=== PATIENT | male | born 1995 | race African-American/Black ===

== ENCOUNTER 2024-10-13 10:00 | Outpatient (RCR) | payer MEDICAID, OTHER, SELFPAY ==
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
--- NOTE | 2024-08-01 09:42 | OPREHPOC ---
Outpatient Therapy Plan of Care This is a Multidisciplinary Plan of Care that may contain components documented by all disciplines (PT, OT, and ST.) OT Problem 1 OT Problem #1 Knowledge Deficit OT Goal 1 Goal / Goal Update 1. Patient to be independent with instructed materials. Target Visit 8 OT Problem 2 OT Problem #2 Impaired Strength OT Goal 1 Goal / Goal Update Patient to improve functional upper extremity strength for ADLs as demonstrated by: 1. Patient being able to complete ROM of bilateral shoulders through normal ROM (160 deg. flexion and abduction). 2. Patient to improve bilateral elbow, forearm, and wrist strength to 4+/5. 3. Patient to increase (R) library manager strength from 45 lbs. to 60 lbs. 4. Patient to increase (L) library manager strength from 44 lbs. to 55 lbs. Target Visit 8
--- NOTE | 2024-08-01 10:47 | OPREHPOC ---
Outpatient Therapy Plan of Care This is a Multidisciplinary Plan of Care that may contain components documented by all disciplines (PT, OT, and ST.) PT Problem 1 PT Problem #1 Knowledge Deficit PT Goal 1 Goal / Goal Update [place] with home stretching program Target Visit 4 PT Problem 2 PT Problem #2 Impaired Gait PT Goal 1 Goal / Goal Update Patient will ambulate with improve terminal stance bilaterally and upright trunk control for 500'+ without cueing Target Visit 10 PT Goal 2 Goal / Goal Update Improve 2 minute walk test to 300' for improve gait speed and endurance appropriate for age Target Visit 10 PT Problem 3 PT Problem #3 Impaired Range of Motion PT Goal 1 Goal / Goal Update 1. Achieve 40 degrees barber hip abduction for reduced capsular restriction 2. Achieve 10+ degrees of barber hip extension for improved terminal stance and reduced hip flexion contracture 3. Demonstrate 10+ degrees barber ankle dorsiflexion to improve terminal stance of gait Target Visit 10 PT Goal 2 Goal / Goal Update Achieve 0-120 degrees barber knee ROM to prevent knee contracture Target Visit 10 PT Problem 4 PT Problem #4 Impaired Strength PT Goal 1 Goal / Goal Update Improve barber hip abduction to 4+/5 to improve lateral stability with gait and ADLs Target Visit 10 OT Problem 1 OT Problem #1 Knowledge Deficit OT Goal 1 Goal / Goal Update 1. Patient to be independent with instructed materials. Target Visit 8 OT Problem 2 OT Problem #2 Impaired Strength OT Goal 1 Goal / Goal Update Patient to improve functional upper extremity strength for ADLs as demonstrated by: 1. Patient being able to complete ROM of bilateral shoulders through normal ROM (160 deg. flexion and abduction). 2. Patient to improve bilateral elbow, forearm, and wrist strength to 4+/5. 3. Patient to increase (R) pet sitter strength from 45 lbs. to 60 lbs. 4. Patient to increase (L) pet sitter strength from 44 lbs. to 55 lbs. Target Visit 8
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
--- NOTE | 2024-08-26 10:47 | OPREHPOC ---
Outpatient Therapy Plan of Care This is a Multidisciplinary Plan of Care that may contain components documented by all disciplines (PT, OT, and ST.) PT Problem 1 PT Problem #1 Knowledge Deficit PT Goal 1 Goal / Goal Update [place] with home stretching program Target Visit 4 PT Problem 2 PT Problem #2 Impaired Gait PT Goal 1 Goal / Goal Update Patient will ambulate with improve terminal stance bilaterally and upright trunk control for 500'+ without cueing Target Visit 10 PT Goal 2 Goal / Goal Update Improve 2 minute walk test to 300' for improve gait speed and endurance appropriate for age Target Visit 10 PT Problem 3 PT Problem #3 Impaired Range of Motion PT Goal 1 Goal / Goal Update 1. Achieve 40 degrees barber hip abduction for reduced capsular restriction 2. Achieve 10+ degrees of barber hip extension for improved terminal stance and reduced hip flexion contracture 3. Demonstrate 10+ degrees barber ankle dorsiflexion to improve terminal stance of gait Target Visit 10 PT Goal 2 Goal / Goal Update Achieve 0-120 degrees barber knee ROM to prevent knee contracture Target Visit 10 PT Problem 4 PT Problem #4 Impaired Strength PT Goal 1 Goal / Goal Update Improve barber hip abduction to 4+/5 to improve lateral stability with gait and ADLs Target Visit 10 OT Problem 1 OT Problem #1 Knowledge Deficit OT Goal 1 Goal / Goal Update 1. Patient to be independent with instructed materials. ---OT POC UPDATE 08/26/24--- 1. Met Target Visit 16 Progress Met OT Problem 2 OT Problem #2 Impaired Strength OT Goal 1 Goal / Goal Update Patient to improve functional upper extremity strength for ADLs as demonstrated by: 1. Patient being able to complete ROM of bilateral shoulders through normal ROM (160 deg. flexion and abduction). 2. Patient to improve bilateral elbow, forearm, and wrist strength to 4+/5. 3. Patient to increase (R) dinkey brakeman strength from 45 lbs. to 60 lbs. 4. Patient to increase (L) dinkey brakeman strength from 44 lbs. to 55 lbs. ---OT POC UPDATE 08/26/24--- 1. Progressing, met with shoulder abduction 2. Met 3. Progressing, continue 4. Progressing, continue Target Visit 16 Progress Partially Met
--- NOTE | 2024-09-06 11:08 | OPREHPOC ---
Outpatient Therapy Plan of Care This is a Multidisciplinary Plan of Care that may contain components documented by all disciplines (PT, OT, and ST.) PT Problem 1 PT Problem #1 Knowledge Deficit PT Goal 1 Goal / Goal Update [place] with home stretching program 09-06-24 progress goal met continue goal to progress HEP Target Visit 16 PT Problem 2 PT Problem #2 Impaired Gait PT Goal 1 Goal / Goal Update Patient will ambulate with improve terminal stance bilaterally and upright trunk control for 500'+ without cueing 09-06-24 progress goal partially met--met distance & stance but not upright trunk NEW GOAL: * pt ambulate with trunk in neutral position Target Visit 16 PT Goal 2 Goal / Goal Update Improve 2 minute walk test to 300' for improve gait speed and endurance appropriate for age 09-06-24 progress goal met NEW GOAL: * pt able to run on the treadmill for 5 minutes Target Visit 16 PT Problem 3 PT Problem #3 Impaired Range of Motion PT Goal 1 Goal / Goal Update 1. Achieve 40 degrees barber hip abduction for reduced capsular restriction 2. Achieve 10+ degrees of barber hip extension for improved terminal stance and reduced hip flexion contracture 3. Demonstrate 10+ degrees barber ankle dorsiflexion to improve terminal stance of gait 09-06-24 progress goal 1 met continue towards goals 2 & 3 Target Visit 16 PT Goal 2 Goal / Goal Update Achieve 0-120 degrees barber knee ROM to prevent knee contracture 09-06-24 progress goal met for R knee; L knee 0-115' continue goal for L knee flexion to 120'; Target Visit 16 PT Problem 4 PT Problem #4 Impaired Strength PT Goal 1 Goal / Goal Update Improve barber hip abduction to 4+/5 to improve lateral stability with gait and ADLs 09-06-24 progress goal not met continue towards goal add goals: 2* increase bilateral ankle DF strength-- no foot slap with walking 3* increase bilateral ankle inversion and eversion strength to 4+/5 to improve balance and mobility skills Target Visit 16 OT Problem 1 OT Problem #1 Knowledge Deficit OT Goal 1 Goal / Goal Update 1. Patient to be independent with instructed materials. ---OT POC UPDATE 08/26/24--- 1. Met Target Visit 16 Progress Met OT Problem 2 OT Problem #2 Impaired Strength OT Goal 1 Goal / Goal Update Patient to improve functional upper extremity strength for ADLs as demonstrated by: 1. Patient being able to complete ROM of bilateral shoulders through normal ROM (160 deg. flexion and abduction). 2. Patient to improve bilateral elbow, forearm, and wrist strength to 4+/5. 3. Patient to increase (R) cardiology clinical consultant strength from 45 lbs. to 60 lbs. 4. Patient to increase (L) cardiology clinical consultant strength from 44 lbs. to 55 lbs. ---OT POC UPDATE 08/26/24--- 1. Progressing, met with shoulder abduction 2. Met 3. Progressing, continue 4. Progressing, continue Target Visit 16 Progress Partially Met
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
--- NOTE | 2024-09-13 09:10 | PCPTNOTE ---
Returned call to pt mom, Kenyatta [phone]. She wanted to check in and see how Michelle was doing and why he was still hunched over with walking. She did not voice any other concerns about his therapy.
--- NOTE | 2024-10-06 10:11 | PCPTNOTE ---
No call No show, reason unknown. AKJoe
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
== END 2024-10-13 10:52 | disposition home or self-care (01) ==
LOC: ANHOT 10:00
PROVIDERS: PCP Nurse Practitioner Family
DX: T24.302A Burn of third degree of unspecified site of left lower limb, except ankle and foot, initial encounter (principal); T24.301A Burn of third degree of unspecified site of right lower limb, except ankle and foot, initial encounter; T21.32XA Burn of third degree of abdominal wall, initial encounter; T31.30 Burns involving 30-39% of body surface with 0% to 9% third degree burns; R26.2 Difficulty in walking, not elsewhere classified; R53.1 Weakness
CPT/HCPCS: 97110; 97116; 97161; 97166; 97530